=== PATIENT | female | born 1955 | race Caucasian/White ===

== ENCOUNTER → 2018-09-30 | Day surgery (SDC) | payer OTHER ==
--- NOTE | 2018-10-01 17:11 | PATH ---
Surgical Pathology Report Patient Name: RAINA LOPEZ [facility]. Rec. #: [id number] /Age/Gender: 1955 (Age: 63) / F Account: [id number] Location: [facility] Taken: 09/30/2018 Received: 09/30/2018 Reported: 10/01/2018 Physicians: Gary Shearer M.D. Specimen(s) Received A: RIGHT BREAST SPECIMEN WITH CALCIFICATIONS B: RIGHT BREAST SPECIMEN WITHOUT CALCIFICATIONS Clinical History Nonpalpable lesion Mammographic findings: Microcalcification, suspicious Final Diagnosis A. 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 B. 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 Electronically Signed Leeanna Bauer M.D. Gross Description A. Received in formalin labeled "right breast with calcifications," is a 2.0 x 1.5 x 0.3 cm aggregate of multiple dumont-yellow, irregular to cylindrical portions of fibroadipose tissue. The formalin is filtered and the specimen is entirely submitted in one cassette. B. Received in formalin labeled "right breast without calcifications," is a 1.8 x 1.7 x 0.3 cm aggregate of multiple dumont-yellow, irregular to cylindrical portions of fibroadipose tissue. The formalin is filtered and the specimen is entirely submitted in one cassette. Time to formalin fixation: 5 minutes Total formalin fixation time: Approximately 8 hours. /09/30/2018 saudi09/30/2018
== END | disposition home or self-care (01) ==
LOC: FMAMMOTONE 08:41
PROVIDERS: ATTEND Obstetrics & Gynecology
PROC: 0HBT3ZX Excision of Right Breast, Percutaneous Approach, Diagnostic (ICD-10-PCS; principal; 2018-09-30)
DX: D24.1 Benign neoplasm of right breast (principal); R92.1 Mammographic calcification found on diagnostic imaging of breast
CPT/HCPCS: 19081; 88305-TC